=== PATIENT | male | born 1990 | race Caucasian/White ===

== ENCOUNTER 2019-04-22 15:56 | Emergency (ER) | payer SELFPAY ==
[~2019-04-22] VITALS: Ht 175.3 cm; Wt 100.0 kg
[~2019-04-22 15:56] MED LIST: AMOXICILLIN 8751 TAB PO; LORTAB 5/500 501 TAB PO; NO HOME MEDICATIONS; NORCO 325 MG-51 TAB PO; PRINIVIL5 MG PO; ZOLOFT 25MG25 MG PO
[2019-04-22 16:00] VITALS: BP 173/117; TEMP 99.6
[2019-04-22] MEDS ORDERED: AMOXICILLIN 8751 TAB PO (18:02)
[2019-04-22] MEDS ORDERED: NORCO 325 MG-51 TAB PO (18:02)
[2019-04-22 18:51] VITALS: PULSE 103
== END 2019-04-22 18:51 | disposition home or self-care (01) ==
LOC: COL.ER 15:56
DX: S62.623B Displaced fracture of middle phalanx of left middle finger, initial encounter for open fracture (principal); F17.210 Nicotine dependence, cigarettes, uncomplicated; W31.2XXA Contact with powered woodworking and forming machines, initial encounter; Z23 Encounter for immunization
CPT/HCPCS: J3010

== ENCOUNTER → 2021-11-05 | Outpatient (CLI) | payer SELFPAY | LOC: COL.RAD 12:39 | DX: Q61.3 Polycystic kidney, unspecified (principal) ==